=== PATIENT | female | born 1955 | race Caucasian/White ===

== ENCOUNTER → 2021-04-11 | Outpatient (CLI) | payer MEDICARE ==
--- NOTE | 2021-04-11 10:05 | Diagnostic Imaging Report ---
PROCEDURE: US Renal Bilateral. TECHNIQUE: Multiple real-time grayscale images were obtained over the kidneys in various projections bilaterally. INDICATION: Renal dysfunction FINDINGS: Right kidney measures 10.3 cm, the left 10.8 cm. The cortical thickness within normal limits. The echotexture was grossly unremarkable. There was no solid or cystic renal mass. No echogenic or shadowing stone. No hydronephrosis. The urinary bladder volume prevoid was 162 mL with a 0 post void residual bladder volume. IMPRESSION: Unobstructed kidneys appeared normal. The bladder unremarkable with no post void residual bladder volume. Dictated by: Dictated on workstation # [id number]
== END ==
LOC: RAD 08:53
PROVIDERS: ATTEND Nurse Practitioner
DX: N18.32 Chronic kidney disease, stage 3b (principal)
CPT/HCPCS: 76770